=== PATIENT | male | born 1975 | race Caucasian/White ===

== ENCOUNTER 2023-09-30 14:58 | Observation (INO) | payer OTHER, BC ==
[~2023-09-30] VITALS: Ht 175.3 cm; Wt 105.0 kg
[~2023-09-30 14:58] MED LIST: NAPROXEN500 MG PO; NORCO 5-325 TA1 EACH PO
[2023-09-30] MEDS ORDERED: TRANEXAMIC ACID 1,000 MG/10 ML AMP ONE (15:24)
[2023-09-30 15:29] LABS: BASOPHILS 0.4 % (0-2); EOSINOPHILS 0.3 % (0-6); HEMATOCRIT 43.9 % (35.0-50.0); HEMOGLOBIN 14.5 g/dL (12.0-18.0); MCH 29.8 (27-36); MCHC 33.1 g/dl (30-36); MCV 90.1 fl (81-99); MONOCYTES 6.3 % (0-12); PLATELET COUNT 253 K/uL (140-440); RBC 4.87 M/ul (4.3-5.7); RDW 13.1 (10.5-15.0)
[2023-09-30] MEDS ORDERED: TRANEXAMIC ACID 2,000 MG in SODIUM CHLORIDE 0.9% 100 ML IV ONE (15:30)
[2023-09-30] MEDS ORDERED: LACTATED RINGER'S 1,000 ML IV ONE (15:30)
[2023-09-30] MEDS ORDERED: HYDROmorphone HCL 1 MG/ML SYR IV PRN ×3 (15:30→18:45)
[2023-09-30 15:46] LABS: ALBUMIN/GLOBULIN RATIO 1.21 (1.1-2.4); ALCOHOL, MEDICAL <3 ng/dL (<3); ALKALINE PHOSPHATASE 72 U/L (46-116); ALT (SGPT) 128 U/L (14-59); ANION GAP 15.8 (7-21); AST (SGOT) 95 U/L (15-37); BILIRUBIN, TOTAL 0.5 ng/dL (0.2-1.0); BUN/CREATININE RATIO 9.77 (6.0-28.6); CALCIUM 8.5 mg/dL (8.5-10.1); CARBON DIOXIDE 25 mmol/L (21-32); CHLORIDE 102 mmol/L (98-107); CREATININE, SERUM 1.33 mg/dL (0.70-1.30); GLOMERULAR FILTRATION RATE,EST 67 mL/min (>60); POTASSIUM 3.8 mmol/L (3.5-5.1); PROTEIN, TOTAL 7.3 g/dL (6.4-8.2); UREA NITROGEN 13 mg/dL (7-18)
[2023-09-30 16:05] LABS: ABO A; ANTIBODY SCREEN NEGATIVE; RH POSITIVE
[2023-09-30] MEDS ORDERED: ondansetron HCL 4 MG/2 ML VIAL IV PRN ×2 (17:15→18:45)
[2023-09-30] MEDS ORDERED: DEXTROSE 5% - LACTATED RINGERS 1,000 ML IV SCH ×2 (17:15→18:45)
[2023-09-30] MEDS ORDERED: ACETAMINOPHEN 500 MG TAB PO PRN (17:15)
[2023-09-30 17:23] LABS: AMPHETAMINES, URINE NEGATIVE (NEGATIVE); BARBITURATES, URINE NEGATIVE (NEGATIVE); BENZODIAZEPINE, URINE NEGATIVE (NEGATIVE); BUPRENORPHINE, URINE NEGATIVE (NEGATIVE); CANNABINOID, URINE NEGATIVE (NEGATIVE); COCAINE, URINE NEGATIVE (NEGATIVE); ECSTASY, URINE NEGATIVE (NEGATIVE); FENTANYL, URINE NEGATIVE (NEGATIVE); METHADONE, URINE NEGATIVE (NEGATIVE); OPIATES, URINE POSITIVE (NEGATIVE); OXYCODONE, URINE NEGATIVE (NEGATIVE); PHENCYCLIDINE, URINE NEGATIVE (NEGATIVE)
[2023-09-30 18:15] VITALS: BP 147/83
[2023-09-30] MEDS ORDERED: ACETAMINOPHEN 325 MG TAB PO PRN (18:45)
[2023-09-30] MEDS ORDERED: HYDROCODONE/APAP 10/325 1 TAB PO PRN (18:45)
[2023-09-30] MEDS ORDERED: ACETAMINOPHEN 650 MG SUPP PR PRN (18:45)
[2023-09-30] MEDS ORDERED: PROCHLORPERAZINE EDISYLATE 10 MG/2 ML VIAL IV PRN (18:45)
--- NOTE | 2023-09-30 18:46 | NUR ---
PT TO FLOOR VIA STRETCHER. PT ABLE, SLOWLY, TO STAND AND TRANSFER TO BED ON OWN. QUITE PAINFUL. GIVEN DILAUDID. ICE PLACED ON FX. INCENT SPIR. EXPLAINED. CALL LIGHT IN REACH. DINNER AT BEDSIDE. FAMILY PRESENT.
--- NOTE | 2023-09-30 19:27 | NUR ---
REPORT RECIEVED FROM DAY SHIFT RN. PATIENT RESTING IN BED WITH ICE ON RIGHT RIBS AND SHOULDER. PATIENT DENIES NEEDS AT THIS TIME. CALL LIGHT IN REACH.
--- NOTE | 2023-09-30 20:34 | NUR ---
TURNING IS OVER TO NURSING PATIENT DOING WELL. TAKING OFF RT SERVICE. PLEASE CALL WITH CONCERNS OR O2 USE.
[2023-09-30 20:43] VITALS: BP 146/86
--- NOTE | 2023-09-30 21:00 | NUR ---
PATIENT RESTING IN BED. PATIENT UP TO BATHROOM WITH MINIMAL SBA TO VOID. SLING PLACED ON RIGHT ARM. PATIENT BACK TO BED. VS AND I&Os OBTAINED AND RECORDED. IV FLUSHED AND WNL. PATIENT DENIES NEEDS AT THIS TIME. FRESH WATER PROVIDED. CALL LIGHT IN REACH.
--- NOTE | 2023-09-30 22:54 | NUR ---
PRN PAIN MEDICATION ADMINISTERED. PATIENT REPORTS 5/10 PAIN IN RIBS AND CLAVICLE WITH MOVEMENT. FRESH ICE PACK PROVIDED. PATIENT DENIES FURTHER NEEDS. PATIENT EDUCATED TO CALL IF HE NEEDS ANYTHING. SCDs IN PLACE. CALL LIGHT IN REACH.
[2023-10-01 01:05] VITALS: BP 131/80
--- NOTE | 2023-10-01 01:05 | NUR ---
CALL LIGHT ANSWERED. PATIENT UP TO BATHROOM TO USE URINAL. PATIENT BACK TO BED. PATIENT REPORTS FEELING ANXIOUS. PATIENT REPOSIONED IN BED. ICE PACK PLACED ON RIGHT SHOULDER. FAN SET UP AT BEDSIDE. PATIENT REPORTS 6/10 PAIN IN RIGHT RIBS AND CLAVICLE. PRN PAIN MEDICATION ADMINISTERED. AFTER ADMINISTERING PRN PAIN MEDICATION, PATIENT REPORTS NEASEA. PRN NAUSEA MEDICATION ADMINISTERED. PATIENT EDUCATED TO CALL IF HE NEEDS ANYTHING ELSE. FRESH WATER PROVIDED. CALL LIGHT IN REACH.
--- NOTE | 2023-10-01 02:47 | NUR ---
ROUNDING ON PATIENT. PATIENT STATES "I AM FEELING COMFORTABLE RIGHT NOW". PATIENT DENIES THE NEED FOR PAIN MEDICATION AT THIS TIME. PATIENT EDUCATED TO CALL IF HE CHANGES HIS MIND. NO FURTHER NEEDS. CALL LIGHT IN REACH.
--- NOTE | 2023-10-01 04:38 | NUR ---
PATIENT RESTING IN BED. PATIENT DENIES NEEDS AT THIS TIME. RESPIRATIONS EVEN AND UNLABORED. CALL LIGHT IN REACH.
--- NOTE | 2023-10-01 04:50 | NUR ---
PATIENT CALLED WANTING TO USE THE BATHROOM. SBA. PATIENT VOIDED 700ML YELLOW URINE. PATIENT IS BACK IN BED. ICE WATER REFILLED. V/S AND I&O'S OBTAINED. PATIENT REQUESTED PAIN MED. PRIMARY RN NOTIFIED. SCD'S BACK ON.
[2023-10-01 04:58] VITALS: BP 134/84
[2023-10-01 05:28] LABS: BASOPHILS 0.2 % (0-2); EOSINOPHILS 0.2 % (0-6); HEMATOCRIT 36.6 % (35.0-50.0); HEMOGLOBIN 12.1 g/dL (12.0-18.0); LYMPHOCYTES 15.8 % (24-44); MCH 30.1 (27-36); MCHC 33.1 g/dl (30-36); MONOCYTES 11.5 % (0-12); NEUTROPHILS 72.3 % (39-80); PLATELET COUNT 184 K/uL (140-440); RBC 4.02 M/ul (4.3-5.7); RDW 13.3 (10.5-15.0)
[2023-10-01 05:47] LABS: ALBUMIN 2.9 g/dL (3.4-5.0); ANION GAP 15.9 (7-21); BILIRUBIN, TOTAL 0.5 ng/dL (0.2-1.0); BUN/CREATININE RATIO 7.2 (6.0-28.6); CREATININE, SERUM 1.11 mg/dL (0.70-1.30); MAGNESIUM 1.8 mg/dL (1.8-2.4); PHOSPHORUS, INORGANIC 3.7 mg/dL (2.5-4.9); POTASSIUM 3.9 mmol/L (3.5-5.1); PROTEIN, TOTAL 5.8 g/dL (6.4-8.2)
--- NOTE | 2023-10-01 05:51 | NUR ---
PATIENT RESTING IN BED. PATIENT REPORTS 5/10 PAIN IN R RIBS AND CLAVICLE. PRN PAIN MEDICATION ADMINISTERED, PER PATIENT REQUEST. PATIENT REPOSITIONED IN BED. SCDs IN PLACE. FRESH ICE PACK PROVIDED. LUNG SOUNDS CLEAR BILAT, DIMINISHED IN BASES. PATIENT HAS NO FURTHER NEEDS. CALL LIGHT IN REACH.
[2023-10-01] MEDS ORDERED: IBLOOD GLUCOSE TEST STRIP 1 EA TEST VI PRN (06:30)
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
--- NOTE | 2023-10-01 07:15 | NUR ---
REPORT RECEIVED FROM CHERI SANCHEZ. ALL QUESTIONS ANSWERED. PT AWAKE IN BED, RATES PAIN 4/10, DENIES NEED FOR INTERVENTION AT THIS TIME. CALL LIGHT IN REACH.
[2023-10-01 07:20] LABS: BASOPHILS 0.4 % (0-2); EOSINOPHILS 0.3 % (0-6); HEMATOCRIT 41.3 % (35.0-50.0); HEMOGLOBIN 13.9 g/dL (12.0-18.0); LYMPHOCYTES 16.4 % (24-44); MCHC 33.6 g/dl (30-36); MCV 89.2 fl (81-99); MONOCYTES 13.4 % (0-12); NEUTROPHILS 69.5 % (39-80); PLATELET COUNT 188 K/uL (140-440); RBC 4.63 M/ul (4.3-5.7); RDW 13.2 (10.5-15.0)
[2023-10-01 07:42] LABS: ALBUMIN 3.5 g/dL (3.4-5.0); ALBUMIN/GLOBULIN RATIO 1.06 (1.1-2.4); ANION GAP 14.1 (7-21); BILIRUBIN, TOTAL 0.6 ng/dL (0.2-1.0); BUN/CREATININE RATIO 8.57 (6.0-28.6); CALCIUM 8.5 mg/dL (8.5-10.1); CREATININE, SERUM 1.05 mg/dL (0.70-1.30); PHOSPHORUS, INORGANIC 4.2 mg/dL (2.5-4.9); POTASSIUM 4.1 mmol/L (3.5-5.1); PROTEIN, TOTAL 6.8 g/dL (6.4-8.2)
--- NOTE | 2023-10-01 08:44 | NUR ---
ASSESSMENT COMPLETE. PT ABLE TO SIT TO EDGE OF BED, CLEAR LUNG SOUNDS. RIGHT ARM IN SHOULDER IMMOBILIZER. PT PREVIOUSLY GIVEN PRN PAIN MEDICATION, FEARFUL OF PAIN WITH MOVEMENT. DR MYERS IN ROOM, DISCUSSED PLAN OF CARE, PT VERBALIZED UNDERSTANDING. PT WITH BREAKFAST AT BEDSIDE. FAMILY IN ROOM. PT DENIES FURTHER NEEDS AT THIS TIME. CALL LIGHT IN REACH.
[2023-10-01 09:38] VITALS: BP 140/79
--- NOTE | 2023-10-01 09:41 | NUR ---
PATIENT IN BED AT THIS TIME. VITALS AND I&O'SC HARTED. CALL LIGHT WTIHIN REACH, NO FURTHER NEEDS AT THIS TIME.
--- NOTE | 2023-10-01 10:30 | NUR ---
Spoke with Shar. He states he lives in a home with 1 steps with his and kids. His pcp is Patrizia Mckenzie from [facility]. He does not use any DME. He is active and works for the [employer]. His main concern is how he will get out of bed at home. He complains of being very sore and use the hospital bed to sit upright. He does not believe he will be able to get outof bed on his own. We discussed at times people will sleep in a recliner to assist with getting up and down. We also discussed PT/OT and will contact Dr. Hernandez to see if he would like and eval. Pt denies financial issues and states they both work and do ok. His family will assist him if needed.
--- NOTE | 2023-10-01 10:40 | NUR ---
Texted Dr. Hernandez and requested an order for PT to eval rm 115. He replied to call him. He states the primary will need to order and this would be his recommendation.
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
--- NOTE | 2023-10-01 11:20 | NUR ---
Texted Dr. Mccarty and asked for orders for PT/OT for Shar. He agrees and replied pt will be discharged today. Spoke with Lin Robbins PT. She will evaluate and treat this pt as he would benefit from education for fx ribs, getting in and out of bed, moving self, etc. Updated orders are in and she will see this pt prior to dc.
[2023-10-01] MEDS ORDERED: OXYCODONE HCL 5 MG TAB PO PRN (12:30)
[2023-10-01] MEDS ORDERED: OXYCODONE HCL10 MG PO (13:24)
[2023-10-01] MEDS ORDERED: COLACE100 MG PO (13:25)
[2023-10-01] MEDS ORDERED: MIRALAX119 GM PO (13:25)
[2023-10-01] MEDS ORDERED: MOTRIN IB200 MG PO (13:26)
[2023-10-01] MEDS ORDERED: TYLENOL325 MG PO (13:26)
[2023-10-01 14:10] VITALS: BP 132/79
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
== END 2023-10-01 15:25 | disposition home or self-care (01) ==
LOC: ED 14:58 → MS 15:01
PROVIDERS: Emergency Medicine; ADMIT Colon & Rectal Surgery; ATTEND Colon & Rectal Surgery
DX: S22.31XA Fracture of one rib, right side, initial encounter for closed fracture (principal); S42.001A Fracture of unspecified part of right clavicle, initial encounter for closed fracture; S27.321A Contusion of lung, unilateral, initial encounter; K40.20 Bilateral inguinal hernia, without obstruction or gangrene, not specified as recurrent; Z88.0 Allergy status to penicillin; V20.09XA Other motorcycle driver injured in collision with pedestrian or animal in nontraffic accident, initial encounter
CPT/HCPCS: 36415; 71045; 71046; 71260; 73000; 73502; 74177; 80053; 80307; 83735; 84100; 85025; 86850; 86900; 86901; 94760; 96375; 96376; 99285-25; A9270; G0378; G0480; J1170; J2405; J7121; Q9967